=== PATIENT | male | born 1950 | race Caucasian/White ===

== ENCOUNTER 2020-09-20 13:11 | Inpatient (IN) | payer BC, MEDICARE ==
--- NOTE | 2020-09-20 13:48 | ED ---
Psych HPI - General Chief Complaint: Psychiatric Symptoms Stated Complaint: Mental health Time Seen by Provider: 09/20/20 13:27 Source: patient, RN notes reviewed Mode of arrival: wheelchair - History of Present Illness Initial Comments: Patient is a 69-year-old male that presents to emergency department complaining of having several suicidal thoughts. Patient denied having a plan other than taking his oxygen off and running around. He noted that he's been having difficulty sleeping due to being dark or he noted that this stems from him being in the hospital for 63 days with coated with a lites were always on in the room. He also noted that he was having difficulty laying in bed due to congestion and oxygen. notes that he just been generally depressed and down. He noted that when he gets dark he gets anxious and I can thing about his how morning, the night woke him. notes that he gets very anxious no he wakes up from sleeping he is more anxious. He did state they taken Xanax this morning before coming in. He also that he has a virtual therapy appointment on September 29. thought that he should come in for evaluation to possibly get a psych consult earlier. Patient was recently put on Lexapro about 3 weeks ago but stated that he might be feeling worse than before putting on it. He denied any chest pain headache nausea vomiting diarrhea constipation fever fatigue chills. - Related Data Home Medications Medication Instructions Recorded Confirmed Multivitamins, Thera [Multivitamin 1 tab PO DAILY 07/14/15 09/20/20 (formulary)] Aspirin EC [Ecotrin Low Dose] 81 mg PO DAILY 09/20/20 09/20/20 Cetirizine HCl [Zyrtec] 10 mg PO DAILY 09/20/20 09/20/20 Famotidine 20 mg PO BID PRN 09/20/20 09/20/20 Fluticasone/Salmeterol 1 puff INHALATION RT-BID 09/20/20 09/20/20 [Fluticasone-Salmeterol 232-14] Metoprolol Tartrate [Lopressor] 25 mg PO BID 09/20/20 09/20/20 traZODone HCL 100 mg PO HS 09/20/20 09/20/20 Previous Rx's Medication Instructions Recorded ARIPiprazole [Abilify] 2.5 mg PO DAILY #15 tablet 09/22/20 Venlafaxine HCl ER [Effexor XR] 37.5 mg PO DAILY #30 cap.er.24h 09/22/20 Allergies Allergy/AdvReac Type Severity Reaction Status Date / Time No Known Allergies Allergy Verified 09/20/20 16:27 Review of Systems ROS Statement: Those systems with pertinent positive or pertinent negative responses have been documented in the HPI. ROS Other: All systems not noted in ROS Statement are negative. Past Medical History Past Medical History: Osteoarthritis (OA) Additional Past Medical History / Comment(s): hx guillian-barre syndrome History of Any Multi-Drug Resistant Organisms: None Reported Past Surgical History: Joint Replacement, Orthopedic Surgery, Tonsillectomy Additional Past Surgical History / Comment(s): glen knee replacements, rt foot and ankle surgeries, 07-23-15 TOTAL LT SHOULDER Past Anesthesia/Blood Transfusion Reactions: No Reported Reaction Past Psychological History: Anxiety Smoking Status: Never smoker Past Alcohol Use History: Occasional Past Drug Use History: None Reported - Past Family History Mother Family Medical History: Osteoarthritis (OA) Father Family Medical History: Congestive Heart Failure (CHF) Additional Family Medical History / Comment(s): PACMAKER General Exam Limitations: no limitations General appearance: alert, in no apparent distress Head exam: Present: atraumatic, normocephalic, normal inspection Eye exam: Present: normal appearance, PERRL, EOMI. Absent: scleral icterus, conjunctival injection, periorbital swelling ENT exam: Present: normal exam, mucous membranes moist Neck exam: Present: normal inspection. Absent: tenderness, meningismus, lymphadenopathy Respiratory exam: Present: normal lung sounds bilaterally, other (Nasal cannula was on an oxygen was flowing.). Absent: respiratory distress, wheezes, rales, rhonchi, stridor Cardiovascular Exam: Present: regular rate, normal rhythm, normal heart sounds. Absent: systolic murmur, diastolic murmur, rubs, gallop, clicks GI/Abdominal exam: Present: soft, normal bowel sounds. Absent: distended, tende rness, guarding, rebound, rigid Extremities exam: Present: normal inspection, full ROM, normal capillary refill. Absent: tenderness, pedal edema, joint swelling, calf tenderness Back exam: Present: normal inspection Neurological exam: Present: alert, oriented X3, CN II-XII intact Psychiatric exam: Present: normal affect, normal mood Skin exam: Present: warm, dry, intact, normal color. Absent: rash Course Vital Signs 09/20/20 13:15 Temperature 97.6 F Pulse Rate 104 H Respiratory 20 Rate Blood Pressure 143/83 O2 Sat by Pulse 96 Oximetry Medical Decision Making - Medical Decision Making 69-year-old male complaining of depression, suicidal ideation. Basic labs, alcohol breath asked ordered. Patient is medically cleared, labs are unremarkable. Case discussed with Dr. Carrera, was decided the patient was cleared for psych evaluation. - Lab Data Result diagrams: 09/21/20 06:39 09/21/20 06:39 Lab Results 09/20/20 09/20/20 09/20/20 Range/Units 14:27 14:27 14:27 WBC 10.1 (3.8-10.6) k/uL RBC 4.52 (4.30-5.90) m/uL Hgb 13.6 (13.0-17.5) gm/dL Hct 42.5 (39.0-53.0) % MCV 94.1 (80.0-100.0) fL MCH 30.1 (25.0-35.0) pg MCHC 32.0 (31.0-37.0) g/dL RDW 15.0 (11.5-15.5) % Plt Count 412 (150-450) k/uL MPV 7.0 Neutrophils % 74 % Lymphocytes % 14 % Monocytes % 7 % Eosinophils % 3 % Basophils % 0 % Neutrophils # 7.5 (1.3-7.7) k/uL Lymphocytes # 1.4 (1.0-4.8) k/uL Monocytes # 0.7 (0-1.0) k/uL Eosinophils # 0.4 (0-0.7) k/uL Basophils # 0.0 (0-0.2) k/uL Sodium 139 (137-145) mmol/L Potassium 3.8 (3.5-5.1) mmol/L Chloride 106 (98-107) mmol/L Carbon Dioxide 25 (22-30) mmol/L Anion Gap 8 mmol/L BUN 9 (9-20) mg/dL Creatinine 0.69 (0.66-1.25) mg/dL Est GFR (CKD-EPI)AfAm >90 (>60 ml/min/1.73 sqM) Est GFR (CKD-EPI)NonAf >90 (>60 ml/min/1.73 sqM) Glucose 115 H (74-99) mg/dL Calcium 9.4 (8.4-10.2) mg/dL Urine Opiates Screen Not Detected (NotDetected) Ur Oxycodone Screen Not Detected (NotDetected) Urine Methadone Screen Not Detected (NotDetected) Ur Propoxyphene Screen Not Detected (NotDetected) Ur Barbiturates Screen Not Detected (NotDetected) U Tricyclic Antidepress Not Detected (NotDetected) Ur Phencyclidine Scrn Not Detected (NotDetected) Ur Amphetamines Screen Not Detected (NotDetected) U Methamphetamines Scrn Not Detected (NotDetected) U Benzodiazepines Scrn Detected H (NotDetected) Urine Cocaine Screen Not Detected (NotDetected) U Marijuana (THC) Screen Not Detected (NotDetected) Coronavirus (PCR) (Not Detectd) 09/20/20 Range/Units 15:45 WBC (3.8-10.6) k/uL RBC (4.30-5.90) m/uL Hgb (13.0-17.5) gm/dL Hct (39.0-53.0) % MCV (80.0-100.0) fL MCH (25.0-35.0) pg MCHC (31.0-37.0) g/dL RDW (11.5-15.5) % Plt Count (150-450) k/uL MPV Neutrophils % % Lymphocytes % % Monocytes % % Eosinophils % % Basophils % % Neutrophils # (1.3-7.7) k/uL Lymphocytes # (1.0-4.8) k/uL Monocytes # (0-1.0) k/uL Eosinophils # (0-0.7) k/uL Basophils # (0-0.2) k/uL Sodium (137-145) mmol/L Potassium (3.5-5.1) mmol/L Chloride (98-107) mmol/L Carbon Dioxide (22-30) mmol/L Anion Gap mmol/L BUN (9-20) mg/dL Creatinine (0.66-1.25) mg/dL Est GFR (CKD-EPI)AfAm (>60 ml/min/1.73 sqM) Est GFR (CKD-EPI)NonAf (>60 ml/min/1.73 sqM) Glucose (74-99) mg/dL Calcium (8.4-10.2) mg/dL Urine Opiates Screen (NotDetected) Ur Oxycodone Screen (NotDetected) Urine Methadone Screen (NotDetected) Ur Propoxyphene Screen (NotDetected) Ur Barbiturates Screen (NotDetected) U Tricyclic Antidepress (NotDetected) Ur Phencyclidine Scrn (NotDetected) Ur Amphetamines Screen (NotDetected) U Methamphetamines Scrn (NotDetected) U Benzodiazepines Scrn (NotDetected) Urine Cocaine Screen (NotDetected) U Marijuana (THC) Screen (NotDetected) Coronavirus (PCR) Not Detected (Not Detectd) Disposition Clinical Impression: Depression, Acute anxiety Disposition: ADMITTED IP TO THIS HOSP Condition: Stable
[2020-09-20 14:30] LABS: Basophils % (A) 0 %; Eosinophils # (A) 0.4 k/uL (0-0.7); Eosinophils % (A) 3 %; HCT 42.5 % (39.0-53.0); HGB 13.6 gm/dL (13.0-17.5); Lymphocytes # (A) 1.4 k/uL (1.0-4.8); Lymphocytes % (A) 14 %; MCH 30.1 pg (25.0-35.0); MCV 94.1 fL (80.0-100.0); Monocytes # (A) 0.7 k/uL (0-1.0); Monocytes % (A) 7 %; Neutrophils # (A) 7.5 k/uL (1.3-7.7); Neutrophils % (A) 74 %; Platelet Count 412 k/uL (150-450); RBC 4.52 m/uL (4.30-5.90); WBC 10.1 k/uL (3.8-10.6)
[2020-09-20 14:39] LABS: African American GFR (CKD) >90 (>60 ml/min/1.73 sqM); Anion Gap 8 mmol/L; Blood Urea Nitrogen 9 mg/dL (9-20); Calcium 9.4 mg/dL (8.4-10.2); Carbon Dioxide 25 mmol/L (22-30); Chloride 106 mmol/L (98-107); Glucose 115 mg/dL (74-99); Non-African American GFR(CKD) >90 (>60 ml/min/1.73 sqM); Potassium 3.8 mmol/L (3.5-5.1); Sodium 139 mmol/L (137-145)
[2020-09-20 14:53] LABS: Cocaine Screen,Urine Not Detected (NotDetected); Phencyclidine Screen,Urine Not Detected (NotDetected); Urn Cannabinoid Scrn Not Detected (NotDetected)
[2020-09-20 14:54] LABS: Amphetamine Screen,Urine Not Detected (NotDetected); Barbiturate Screen,Urine Not Detected (NotDetected); Benzodiazepines Screen,Urine Detected (NotDetected); Methadone Screen, Urine Not Detected (NotDetected); Opiate Screen,Urine Not Detected (NotDetected); Oxycodone Screen, Urine Not Detected (NotDetected); Tricyclic Antidepressant,Urine Not Detected (NotDetected)
[2020-09-20] MEDS ORDERED: MAGNESIUM HYDROXIDE 2,400 MG/10 ML CUP PO PRN (17:40)
[2020-09-20] MEDS ORDERED: MAG HYDROX/AL HYDROX/SIMETH 30 ML CUP PO PRN (17:40)
[2020-09-20] MEDS ORDERED: LORazepam 1 MG TAB PO PRN (17:40)
[2020-09-20] MEDS ORDERED: ACETAMINOPHEN TAB 325 MG TAB PO PRN (17:40)
[2020-09-20] MEDS ORDERED: LORazepam 2 MG/ML INJ IM PRN (17:51)
[2020-09-20] MEDS ORDERED: HALOPERIDOL LACTATE 5 MG/ML 1 ML VIAL IM PRN (17:52)
[2020-09-20] MEDS ORDERED: haloperidoL 5 MG TAB PO PRN (17:53)
[2020-09-20] MEDS: SYMBICORT 160-4.5 MCG INHALER (MHU) INHALATION SCH (21:30)
[2020-09-20] MEDS: traZODone HCL 100 MG TAB PO SCH (22:31)
[2020-09-20] MEDS: METOPROLOL TARTRATE 25 MG TAB PO SCH (22:31)
--- NOTE | 2020-09-21 06:39 | P.CONS ---
History of Present Illness - Reason for Consult Consult date: 09/21/20 - History of Present Illness Patient is a 69-year-old male with a PMH of COVID-19 pneumonia on 3L NC, and anxiety who was brought into the emergency room due to depression. The patient had noted that he was contemplating taking off his oxygens that he may pass away. The patient was admitted to the mental health unit where he was seen and evaluated. The patient reported ongoing feelings of depression ever since his diagnosis of Covid and that it has been difficult for him to cope since he is continuing to require nasal cannula oxygen. He denied additional complaints however. Denied chest pain, shortness of breath, nausea, vomiting, diarrhea, fever, chills, cough. Patient's laboratory evaluation was reviewed and was unremarkable. Review of Systems Pertinent positives and negatives as discussed in HPI, a complete review of systems was performed and all other systems are negative. Past Medical History Past Medical History: Osteoarthritis (OA) Additional Past Medical History / Comment(s): hx guillian-barre syndrome History of Any Multi-Drug Resistant Organisms: None Reported Past Surgical History: Joint Replacement, Orthopedic Surgery, Tonsillectomy Additional Past Surgical History / Comment(s): glen knee replacements, rt foot and ankle surgeries, --15 TOTAL LT SHOULDER, ankle and toe fusion. Past Anesthesia/Blood Transfusion Reactions: No Reported Reaction Past Psychological History: Anxiety, Depression Additional Psychological History / Comment(s): No prior Depression, started new meds 3 weeks ago and the suicidal thoughts started after that. Smoking Status: Never smoker Past Alcohol Use History: Occasional Past Drug Use History: None Reported - Past Family History Mother Family Medical History: Osteoarthritis (OA) Father Family Medical History: Congestive Heart Failure (CHF) Additional Family Medical History / Comment(s): pacemaker Medications and Allergies Home Medications Medication Instructions Recorded Confirmed Type ALPRAZolam [Xanax] 0.25 mg PO Q8H PRN 07/14/15 09/20/20 History Multivitamins, Thera [Theragran] 1 tab PO DAILY 07/14/15 09/20/20 History Aspirin EC [Ecotrin Low Dose] 81 mg PO DAILY 09/20/20 09/20/20 History Cetirizine HCl [Zyrtec] 10 mg PO DAILY 09/20/20 09/20/20 History Escitalopram [Lexapro] 10 mg PO DAILY 09/20/20 09/20/20 History Famotidine 20 mg PO BID PRN 09/20/20 09/20/20 History Fluticasone/Salmeterol 1 puff INHALATION RT-BID 09/20/20 09/20/20 History [Fluticasone-Salmeterol 232-14] Metoprolol Tartrate [Lopressor] 25 mg PO BID 09/20/20 09/20/20 History traZODone HCL 100 mg PO HS 09/20/20 09/20/20 History Allergies Allergy/AdvReac Type Severity Reaction Status Date / Time No Known Allergies Allergy Verified 09/20/20 16:27 Physical Exam Vitals: Vital Signs Temp Pulse Pulse Resp BP BP Pulse Ox 09/20/20 21:31 92 L 09/20/20 18:23 93 24 147/82 91 L 09/20/20 13:15 97.6 F 104 H 20 143/83 96 Intake and Output 09/20/20 09/20/20 09/21/20 14:59 22:59 06:59 Other: Weight 95.254 kg 92.2 kg General: non toxic, no distress, appears at stated age, overweight Derm: no unusual rashes/lesions no unusual ecchymoses, warm, dry Head: atraumatic, normocephalic, symmetric Eyes: EOMI, no lid lag, anicteric sclera, pupils equal round reactive to light ENT: Nose and ears atraumatic, no thrush, no pharyngeal erythema Neck: No thyromegaly, no cervical lymphadenopathy, trachea midline, supple Mouth: no lip lesion, mucus membranes moist Cardiovascular: S1S2 reg, no murmur, positive posterior tibial pulse bilateral, no edema, capillary refill less than 2 seconds Lungs: CTA bilateral, no rhonchi, no rales , no accessory muscle use Abdominal: soft, nontender to palpation, no guarding, no appreciable organomegaly, normal bowel sounds Ext: no gross muscle atrophy, muscle strength 5 out of 5 in all 4 extremities grossly, no contractures, Neuro: CN II-XI grossly intact, light touch intact all 4 extremities, finger to nose within normal limits, Psych: Alert, oriented, depressed affect Results CBC & Chem 7: 09/21/20 06:39 09/21/20 06:39 Labs: Abnormal Lab Results - Last 24 Hours (Table) 09/20/20 09/20/20 Range/Units 14:27 14:27 Glucose 115 H (74-99) mg/dL U Benzodiazepines Scrn Detected H (NotDetected) Assessment and Plan Plan: Recent COVID 19 pneumonia -Continue with nasal cannula oxygen Depression and suicidal ideation -As per psychiatry Thank you for allowing us to participate in the care of this patient. We will follow peripherally. Do not hesitate to contact us with questions. Someone can be reached from the [facility] hospitalist group at all hours of the day at [phone].
[2020-09-21 07:22] VITALS: RESP 16
[2020-09-21 07:27] LABS: Basophils % (A) 0 %; Eosinophils # (A) 0.3 k/uL (0-0.7); Eosinophils % (A) 3 %; HGB 14.6 gm/dL (13.0-17.5); Lymphocytes # (A) 1.4 k/uL (1.0-4.8); Lymphocytes % (A) 16 %; MCH 29.3 pg (25.0-35.0); MCHC 30.4 g/dL (31.0-37.0); MCV 96.4 fL (80.0-100.0); Monocytes # (A) 0.6 k/uL (0-1.0); Monocytes % (A) 7 %; Neutrophils # (A) 6.7 k/uL (1.3-7.7); Neutrophils % (A) 72 %; Platelet Count 417 k/uL (150-450); RBC 4.98 m/uL (4.30-5.90); RDW 14.9 % (11.5-15.5); WBC 9.3 k/uL (3.8-10.6)
[2020-09-21 07:58] LABS: ALT 18 U/L (4-49); AST 22 U/L (17-59); African American GFR (CKD) >90 (>60 ml/min/1.73 sqM); Albumin 4.1 g/dL (3.5-5.0); Alkaline Phosphatase 77 U/L (38-126); Anion Gap 10 mmol/L; Blood Urea Nitrogen 5 mg/dL (9-20); Carbon Dioxide 23 mmol/L (22-30); Chloride 107 mmol/L (98-107); Cholesterol 160 mg/dL (<200); Glucose 110 mg/dL (74-99); HDL Cholesterol 67 mg/dL (40-60); LDL Cholesterol,Calculated 77 mg/dL (0-99); Non-African American GFR(CKD) >90 (>60 ml/min/1.73 sqM); Potassium 4.6 mmol/L (3.5-5.1); Sodium 140 mmol/L (137-145); Total Bilirubin 0.5 mg/dL (0.2-1.3); Total Protein 6.7 g/dL (6.3-8.2); Triglycerides 82 mg/dL (<150)
[2020-09-21] MEDS: LORATADINE 10 MG TAB PO SCH (08:34)
[2020-09-21] MEDS: METOPROLOL TARTRATE 25 MG TAB PO SCH ×2 (08:34→21:03)
[2020-09-21] MEDS: MULTIVITAMINS, THERA 1 EACH TAB PO SCH (08:34)
[2020-09-21] MEDS: ASPIRIN 81 MG PO SCH (08:34)
[2020-09-21] MEDS: SYMBICORT 160-4.5 MCG INHALER (MHU) INHALATION SCH ×2 (08:35→21:04)
[2020-09-21] MEDS ORDERED: ESCITALOPRAM 10 MG TAB PO SCH (09:00)
[2020-09-21 09:06] VITALS: BP 130/87; PULSE 117
[2020-09-21] MEDS: VENLAFAXINE HCL ER 37.5 MG CAP PO SCH (12:33)
[2020-09-21] MEDS: FLUTICASONE 50MCG/SPRAY NASAL 16GM EA NOSTRIL PRN ×2 (12:33→21:07)
[2020-09-21] MEDS: SALINE NASAL GEL 14.1 GM TUBE TOPICAL PRN ×2 (12:35→21:07)
--- NOTE | 2020-09-21 15:06 | P.HP ---
Psychiatric H&P - . H&P Date: 09/21/20 History & Physical: IDENTIFYING DATA: He is a 69-year-old male admitted to psychiatric unit voluntarily with complaints of anxiety, helplessness and suicidal ideation. HISTORY OF PRESENT ILLNESS: His brought him the hospital concerned about his mood and behavior. He was hospitalized for 67 days as a result of a severe COVID infection and discharge in August. He was discharged from the hospital on supplemental oxygen. Since he left the hospital he was unable to returned to his normal activities. He complained that he has difficulty concentrating. He is frustrated that he could not perform simple tasks such as balancing a ledger and activity he was able to perform well prior to the COVID infection. He feels frustrated that he becomes short of breath and feels generally weak and tired with minimal exertion. He denied that he expressed thoughts of or suicide to his or family. He denied that he had attempted suicide. He described several elements of a postcode syndrome including fatigue, shortness of breath, impairment in memory and concentration. His complained that he has been frustrated by the duration of his recovery. She stated that he has expressed wishes but never expressed suicidal thoughts, plans or intent. She described him as an anxious person who is always "worrying". He described feelings of depression with decreased ability to enjoy himself, disrupted sleep, or concentration and fatigue. He feels anxious but denied persistent or severe anxiety that interferes with his ability to function. He denied experiencing panic attack, obsessions or compulsions. He described himself as a constant worrier and always concerned about the worst outcome. He denied psychotic symptoms such as hallucinations, paranoia or disturbances of thought. He does not drink or use drugs. PAST PSYCHIATRIC HISTORY: He has no prior psychiatric hospitalizations. A primary prescribed Xanax in the past for treatment of anxiety symptoms. He is never met with a mental health professional. PAST MEDICAL HISTORY: ARTHRITIS, history of Guillain-Wall syndrome, status post severe Covid infection with a prolonged hospitalization ALLERGIES: Known drug ALLERGIES SUBSTANCE USE HISTORY: History of drug or alcohol use problems FAMILY PSYCHIATRIC/SUBSTANCE USE HISTORY: Where family history of mental illness or substance use problems. LEGAL HISTORY: Denied history of legal problems. SOCIAL HISTORY: He is born and raised in [place]. 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 He has been for 37 years previous 2 children. 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 MENTAL STATUS EXAM: He presented as a pale appearing 69-year-old male who was pleasant on approach. He made eye contact and attended to the interview. He was significant comfortably in the chair wearing nasal cannula. He had no prominent physical abnormalities or distinguishing features. He had a sad facial expression. He was alert and oriented to person, place and time. He showed psychomotor retardation but no abnormal involuntary movements. Her speech was soft, slow with decreased prosody. His affect was depressed but reactive. He denied suicidal ideation and wishes. He denied homicidal ideation. He feels helpless over his medical infirmity but did not describe feelings of hopelessness or worthlessness. He did not express ideas reference, paranoid ideation or delusions. He denied auditory and visual hallucinations and did not appear to be responding to internal stimuli. Global impression of the sclerae average to above. He is aware of his illness and need for treatment. We completed the [place] cognitive assessment. His total score was 24/30 in his memory index score was 10/15. A total score less than 26 is consistent with cognitive impairment. He had problems with language, abstraction and delayed recall. He showed no impairment with visual spatial/and psychiatric functioning, naming, attention and orientation. STRENGTHS: Label housing, stable income, supportive family WEAKNESSES: Severe medical illness with prolonged medical hospitalization IMPRESSION: He is a 69-year-old male who has history of anxiety disorder. He presented to Hospital voluntarily with complaints of impaired functioning, poor concentration and feelings of helplessness after a prolonged hospitalization for a severe Covid infection. He described mainly to signs and symptoms of a postcode" syndrome including fatigue, shortness of breath, impaired memory and impaired concentration. He has signs and symptoms of depressive disorder but many of the symptoms could be related to his partial recovery from the severe Covid infection. On formal mental status testing he is showing cognitive impairment primarily affecting language, abstraction and delayed recall. He would benefit from inpatient treatment, they have psycho pharmacology and multimodal therapy. PRINCIPLE DIAGNOSIS: Major depressive disorder moderate with anxious distress, unspecified neurocognitive disorder rule out major reminder neurocognitive disorder due to another medical condition (Covid infection). RECOMMENDATION: Admit the psychiatric unit. Safety precautions. On one-to-one due to oxygen use. Consult medicine for initial physical exam and medical history. 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 Discontinue Lexapro and begin a trial of Effexor XR 37.5 mg and titrated according to clinical response and tolerance. Continue Desyrel 100 mg at bedtime. Consider a trial of a second generation antipsychotic if his mood does not improve with the Effexor. Continue low-dose aspirin, Symbicort, Lopressor and multivitamins. Encourage participation in therapeutic groups and activities as tolerated. Evaluate clinical status response to treatment daily basis. Allergies Allergy/AdvReac Type Severity Reaction Status Date / Time No Known Allergies Allergy Verified 09/20/20 16:27 Vital Signs Temp 98.2 F 09/21/20 06:13 Pulse 117 H 09/21/20 08:30 Resp 16 09/21/20 06:13 BP 130/87 09/21/20 08:30 Pulse Ox 95 09/21/20 06:13 Intake & Output 09/20/20 09/21/20 09/21/20 18:59 06:59 18:59 Weight 92.2 kg Laboratory Last Values WBC 9.3 k/uL (3.8-10.6) 09/21/20 06:39 RBC 4.98 m/uL (4.30-5.90) 09/21/20 06:39 Hgb 14.6 gm/dL (13.0-17.5) 09/21/20 06:39 Hct 48.0 % (39.0-53.0) 09/21/20 06:39 MCV 96.4 fL (80.0-100.0) 09/21/20 06:39 MCH 29.3 pg (25.0-35.0) 09/21/20 06:39 MCHC 30.4 g/dL (31.0-37.0) L 09/21/20 06:39 RDW 14.9 % (11.5-15.5) 09/21/20 06:39 Plt Count 417 k/uL (150-450) 09/21/20 06:39 MPV 7.0 09/21/20 06:39 Neutrophils % 72 % 09/21/20 06:39 Lymphocytes % 16 % 09/21/20 06:39 Monocytes % 7 % 09/21/20 06:39 Eosinophils % 3 % 09/21/20 06:39 Basophils % 0 % 09/21/20 06:39 Neutrophils # 6.7 k/uL (1.3-7.7) 09/21/20 06:39 Lymphocytes # 1.4 k/uL (1.0-4.8) 09/21/20 06:39 Monocytes # 0.6 k/uL (0-1.0) 09/21/20 06:39 Eosinophils # 0.3 k/uL (0-0.7) 09/21/20 06:39 Basophils # 0.0 k/uL (0-0.2) 09/21/20 06:39 Sodium 140 mmol/L (137-145) 09/21/20 06:39 Potassium 4.6 mmol/L (3.5-5.1) 09/21/20 06:39 Chloride 107 mmol/L (98-107) 09/21/20 06:39 Carbon Dioxide 23 mmol/L (22-30) 09/21/20 06:39 Anion Gap 10 mmol/L 09/21/20 06:39 BUN 5 mg/dL (9-20) L 09/21/20 06:39 Creatinine 0.56 mg/dL (0.66-1.25) L 09/21/20 06:39 Est GFR (CKD-EPI)AfAm >90 (>60 ml/min/1.73 sqM) 09/21/20 06:39 Est GFR (CKD-EPI)NonAf >90 (>60 ml/min/1.73 sqM) 09/21/20 06:39 Glucose 110 mg/dL (74-99) H 09/21/20 06:39 Calcium 10.0 mg/dL (8.4-10.2) 09/21/20 06:39 Total Bilirubin 0.5 mg/dL (0.2-1.3) 09/21/20 06:39 AST 22 U/L (17-59) 09/21/20 06:39 ALT 18 U/L (4-49) 09/21/20 06:39 Alkaline Phosphatase 77 U/L (38-126) 09/21/20 06:39 Total Protein 6.7 g/dL (6.3-8.2) 09/21/20 06:39 Albumin 4.1 g/dL (3.5-5.0) 09/21/20 06:39 Triglycerides 82 mg/dL (<150) 09/21/20 06:39 Cholesterol 160 mg/dL (<200) 09/21/20 06:39 LDL Cholesterol, Calc 77 mg/dL (0-99) 09/21/20 06:39 HDL Cholesterol 67 mg/dL (40-60) H 09/21/20 06:39 TSH 2.070 mIU/L (0.465-4.680) 09/21/20 06:39 Urine Opiates Screen Not Detected (NotDetected) 09/20/20 14:27 Ur Oxycodone Screen Not Detected (NotDetected) 09/20/20 14:27 Urine Methadone Screen Not Detected (NotDetected) 09/20/20 14:27 Ur Propoxyphene Screen Not Detected (NotDetected) 09/20/20 14:27 Ur Barbiturates Screen Not Detected (NotDetected) 09/20/20 14:27 U Tricyclic Antidepress Not Detected (NotDetected) 09/20/20 14:27 Ur Phencyclidine Scrn Not Detected (NotDetected) 09/20/20 14:27 Ur Amphetamines Screen Not Detected (NotDetected) 09/20/20 14:27 U Methamphetamines Scrn Not Detected (NotDetected) 09/20/20 14:27 U Benzodiazepines Scrn Detected (NotDetected) H 09/20/20 14:27 Urine Cocaine Screen Not Detected (NotDetected) 09/20/20 14:27 U Marijuana (THC) Screen Not Detected (NotDetected) 09/20/20 14:27 Coronavirus (PCR) Not Detected (Not Detectd) 09/20/20 15:45 09/21/20 14:44
[2020-09-21 16:29] VITALS: TEMP 97
[2020-09-21 18:48] LABS: Hemoglobin A1C 4.9 % (4.0-6.0)
[2020-09-21 20:51] LABS: Appearance,Urine Clear (Clear); Bilirubin,Urine Negative (Negative); Blood,Urine Negative (Negative); Color,Urine Light Yellow; Glucose,Urine (UA) Negative (Negative); Ketones,Urine Negative (Negative); Leukocyte Esterase,Urine Negative (Negative); Nitrite,Urine Negative (Negative); PH, Urine 6.5 (5.0-8.0); Protein,Urine Negative (Negative); Specific Gravity,Urine 1.007 (1.001-1.035); Urobilinogen,Urine <2.0 mg/dL (<2.0)
[2020-09-21] MEDS: traZODone HCL 100 MG TAB PO SCH (21:03)
[2020-09-22 06:53] LABS: Urine Alcohol Negative (Negative); Urine Barbiturate Negative (Negative); Urine Cocaine Negative (Negative); Urine Methadone Negative (Negative); Urine Opiates Negative (Negative); Urine Phencyclidine Negative (Negative)
[2020-09-22] MEDS ORDERED: VENLAFAXINE HCL ER 37.5 MG CAP PO SCH (09:00)
[2020-09-22] MEDS: VENLAFAXINE HCL ER 37.5 MG CAP PO SCH (09:17)
[2020-09-22] MEDS: ASPIRIN 81 MG PO SCH (09:17)
[2020-09-22] MEDS: MULTIVITAMINS, THERA 1 EACH TAB PO SCH (09:17)
[2020-09-22] MEDS: METOPROLOL TARTRATE 25 MG TAB PO SCH (09:17)
[2020-09-22] MEDS: LORATADINE 10 MG TAB PO SCH (09:17)
[2020-09-22] MEDS: SYMBICORT 160-4.5 MCG INHALER (MHU) INHALATION SCH (09:18)
[2020-09-22] MEDS: SALINE NASAL GEL 14.1 GM TUBE TOPICAL PRN ×2 (09:37→14:22)
[2020-09-22] MEDS: FLUTICASONE 50MCG/SPRAY NASAL 16GM EA NOSTRIL PRN (09:37)
[2020-09-22] MEDS ORDERED: ARIPiprazole 2 MG TAB PO SCH (12:30)
--- NOTE | 2020-09-22 13:23 | P.DS ---
Providers Date of admission: 09/20/20 17:38 Attending physician: Clinton Escalera MD Consults: 09/20/20 17:40 Consult Physician Routine Consulting Provider: Armida Physician Consult Reason/Comments: medical management Do you want consulting provider notified?: Yes Primary care physician: Ollie Brody - Discharge Diagnosis(es) (1) Major depressive disorder, recurrent episode, moderate with anxious distress Current Visit: Yes Status: Acute Priority: Medium (2) Minor neurocognitive disorder Current Visit: Yes Status: Acute Priority: Medium (3) Post-COVID syndrome Current Visit: Yes Status: Acute Priority: High Hospital Course: HISTORY: He is a 69-year-old male admitted to psychiatric unit voluntarily with complaints of anxiety, helplessness and suicidal ideation. His brought him the hospital concerned about his mood and behavior. He was hospitalized for 67 days as a result of a severe COVID infection and discharge in August. He was discharged from the hospital on supplemental oxygen. Since he left the hospital he was unable to returned to his normal activities. He complained that he has difficulty concentrating. He is frustrated that he could not perform simple tasks such as balancing a ledger and activity he was able to perform well prior to the COVID infection. He feels frustrated that he becomes short of breath and feels generally weak and tired with minimal exertion. He denied that he expressed thoughts of or suicide to his or family. He denied that he had attempted suicide. He described several elements of a postcode syndrome including fatigue, shortness of breath, impairment in memory and concentration. His complained that he has been frustrated by the duration of his recovery. She stated that he has expressed wishes but never expressed suicidal thoughts, plans or intent. She described him as an anxious person who is always "worrying". He described feelings of depression with decreased ability to enjoy himself, disrupted sleep, or concentration and fatigue. He feels anxious but denied persistent or severe anxiety that interferes with his ability to function. He denied experiencing panic attack, obsessions or compulsions. He described himself as a constant worrier and always concerned about the worst outcome. He denied psychotic symptoms such as hallucinations, paranoia or disturbances of thought. He does not drink or use drugs. He has no prior psychiatric hospitalizations. A primary prescribed Xanax in the past for treatment of anxiety symptoms. He is never met with a mental health professional. We completed the [place] cognitive assessment. His total score was 24/30 in his memory index score was 10/15. A total score less than 26 is consistent with cognitive impairment. He had problems with language, abstraction and delayed recall. He showed no impairment with visual spatial/and psychiatric functioning, naming, attention and orientation. HOSPITAL COURSE: We admitted the psychiatric unit involuntarily under the care of this specifications writer provided A biopsychosocial assessment. The leadership development consultant medical affairs specialist completed initial physical exam and medical history and only diagnosed a recent Covid 19 pneumonia. The leadership development consultant recommended to continue with nasal cannula oxygen. Resumed his outpatient medications including aspirin 81 mg daily, Symbicort 1 puff twice a day, Lopressor 25 mg twice a day and multiple multivitamins. He had been treated with Lexapro for 3 weeks without improvement in mood. We discontinued Lexapro and began a trial of Effexor XR 37.5 mg. We continued 100 mg of trazodone at bedtime. We augmented the antidepressant with Abilify 2.5 mg daily. He never expressed suicidal thoughts and repeatedly denied suicidal intent or plan. He talked about intermittent feelings of hopelessness and expressing wishes because he is not able to function as he had prior to the Covid infection. He was confused during hospitalization. He talked about feeling as though he would never see his family against and that he had "" when he was on the unit. I spoke to his about his depression and confusion. I explained the different elements of the post Covid syndrome including impairment in concentration and attention. I explained our observations in his performance on the [place] cognitive assessment suggesting that he is experiencing a cognitive impairment that, like his respiratory status, we'll need to heal. MENTAL STATUS ON DISCHARGE: At the time of discharge presented as a pale appearing 69-year-old male who was pleasant on approach. He made eye contact and attended to the interview. He was significant comfortably in the chair wearing nasal cannula. He had no prominent physical abnormalities or distinguishing features. He had a sad facial expression. He was alert and oriented to person, place and time. He showed psychomotor retardation but no abnormal involuntary movements. Her speech was soft, slow with decreased prosody. His affect was depressed but reactive. He denied suicidal ideation and wishes. He denied homicidal ideation. He feels helpless over his medical infirmity but did not describe feelings of hopelessness or worthlessness. He did not express ideas reference, paranoid ideation or delusions. He denied auditory and visual hallucinations and did not appear to be responding to internal stimuli. Global impression of the sclerae average to above. He is aware of his illness and need for treatment. DISPOSITION: Discharge home. He has a follow-up appointment with deon florian on 09/29/2020. His discharge psychotropic medications include Effexor XR 37.5 mg daily, Abilify 2.5 mg daily and trazodone 100 mg at bedtime. Patient Condition at Discharge: Stable Plan - Discharge Summary Discharge Rx Participant: No New Discharge Prescriptions: New ARIPiprazole [Abilify] 2.5 mg PO DAILY #15 tablet Venlafaxine HCl ER [Effexor XR] 37.5 mg PO DAILY #30 cap.er.24h Continue Multivitamins, Thera [Multivitamin (formulary)] 1 tab PO DAILY Metoprolol Tartrate [Lopressor] 25 mg PO BID Fluticasone/Salmeterol [Fluticasone-Salmeterol 232-14] 1 puff INHALATION RT- BID Famotidine 20 mg PO BID PRN PRN Reason: Gi Upset traZODone HCL 100 mg PO HS Cetirizine HCl [Zyrtec] 10 mg PO DAILY Aspirin EC [Ecotrin Low Dose] 81 mg PO DAILY Discontinued ALPRAZolam [Xanax] 0.25 mg PO Q8H PRN PRN Reason: Anxiety Escitalopram [Lexapro] 10 mg PO DAILY Discharge Medication List Multivitamins, Thera [Multivitamin (formulary)] 1 tab PO DAILY 07/14/15 [History] Aspirin EC [Ecotrin Low Dose] 81 mg PO DAILY 09/20/20 [History] Cetirizine HCl [Zyrtec] 10 mg PO DAILY 09/20/20 [History] Famotidine 20 mg PO BID PRN 09/20/20 [History] Fluticasone/Salmeterol [Fluticasone-Salmeterol 232-14] 1 puff INHALATION RT-BID 09/20/20 [History] Metoprolol Tartrate [Lopressor] 25 mg PO BID 09/20/20 [History] traZODone HCL 100 mg PO HS 09/20/20 [History] ARIPiprazole [Abilify] 2.5 mg PO DAILY #15 tablet 09/22/20 [Rx] Venlafaxine HCl ER [Effexor XR] 37.5 mg PO DAILY #30 cap.er.24h 09/22/20 [Rx] Follow up Appointment(s)/Referral(s): Psychological, List [Other] - 09/29/20 12:30 pm (Andrés Barajas ) Ollie Brody, [Primary Care Provider] - 1-2 days Activity/Diet/Wound Care/Special Instructions: Activity and diet as tolerated. Avoid the use of street drugs and alcohol. Take all medications as prescribed. When you are in need of refills on your medications please contact your medical provider and/or outpatient psychiatrist to have this done. Please go to scheduled outpatient appointment for aftercare treatment. If symptoms return or become worse, call the crisis line at and/or go to the nearest emergency room for evaluation. Discharge Disposition: HOME SELF-CARE
[2020-09-23] MEDS ORDERED: ARIPiprazole 5 MG TAB PO SCH (13:04)
== END 2020-09-22 15:06 | disposition home or self-care (01) | DRG 885 ==
LOC: EC 13:11 → 3MHU 17:38
PROVIDERS: ADMIT Psychiatry & Neurology Psychiatry; ATTEND Psychiatry & Neurology Psychiatry
DX: F33.1 Major depressive disorder, recurrent, moderate (principal); R45.851 Suicidal ideations; Z20.822 Contact with and (suspected) exposure to COVID-19; F41.9 Anxiety disorder, unspecified; R41.89 Other symptoms and signs involving cognitive functions and awareness; R06.02 Shortness of breath; R53.1 Weakness; M19.90 Unspecified osteoarthritis, unspecified site; Z86.16 Personal history of COVID-19; Z79.82 Long term (current) use of aspirin; Z79.51 Long term (current) use of inhaled steroids; Z79.899 Other long term (current) drug therapy; Z86.69 Personal history of other diseases of the nervous system and sense organs; Z90.89 Acquired absence of other organs; Z96.653 Presence of artificial knee joint, bilateral; Z87.39 Personal history of other diseases of the musculoskeletal system and connective tissue; Z98.890 Other specified postprocedural states; Z82.49 Family history of ischemic heart disease and other diseases of the circulatory system; Z81.8 Family history of other mental and behavioral disorders
CPT/HCPCS: 36415; 80048; 80053; 80061; 80306; 81003; 83036; 84443; 85025; 87635; 94640; 99285